=== PATIENT | female | born 1975 | race Caucasian/White ===

== ENCOUNTER 2016-07-18 06:03 | Day surgery (SDC) | payer BC ==
[2016-07-11 16:22] LABS: HEMOGLOBIN 13.7 g/dL (12.0-16.0)
[~2016-07-18 06:03] MED LIST: SPRINTEC; ZYRTEC ALLGY10 MG PO
== END 2016-07-18 23:59 | disposition home or self-care (01) ==
LOC: MSC 06:03
PROVIDERS: Surgery Plastic and Reconstructive Surgery
PROC: 0J0D3ZZ Alteration of Right Upper Arm Subcutaneous Tissue and Fascia, Percutaneous Approach (ICD-10-PCS; principal; 2016-07-18 07:15)
PROC: 0J0F3ZZ Alteration of Left Upper Arm Subcutaneous Tissue and Fascia, Percutaneous Approach (ICD-10-PCS; 2016-07-18 07:15)
DX: N62 Hypertrophy of breast (principal)
CPT/HCPCS: 84703; 85014; 85018; 88305; A9270-GY; J0690; J2250; J2405; J2550; J2710; J3010